=== PATIENT | male | born 1940 | race Asian ===

== ENCOUNTER 2023-09-07 14:32 | Inpatient (IN) | payer MEDICARE, OTHER ==
[~2023-09-07] VITALS: Ht 167.6 cm; Wt 68.0 kg
[2023-09-07 15:52] LABS: BASOPHILS % (AUTO) 0.4 % (0.0-2.0); EOSINOPHILS # (AUTO) 0.1 K/uL (0.0-0.7); EOSINOPHILS % (AUTO) 1.5 % (0.0-7.0); HEMATOCRIT 41.9 % (36.7-47.1); HEMOGLOBIN 13.9 g/dL (12.5-16.3); LYMPHOCYTES # (AUTO) 0.7 K/uL (0.8-4.8); LYMPHOCYTES % (AUTO) 9.6 % (20.5-51.5); MEAN CORPUSCULAR HEMOGLOBIN 30.1 uug (23.8-33.4); MEAN CORPUSCULAR HGB CONC 33 g/dL (32.5-36.3); MEAN CORPUSCULAR VOLUME 90.8 fL (73.0-96.2); MONOCYTES # (AUTO) 0.4 K/uL (0.1-1.30); MONOCYTES % (AUTO) 5.4 % (0.0-11.0); NEUTROPHILS # (AUTO) 5.7 K/uL (1.8-8.9); NEUTROPHILS % (AUTO) 83.1 % (38.5-71.5); PLATELET COUNT (AUTO) 185 K/uL (152-348); RED BLOOD CELL COUNT(AUTO) 4.62 MIL/uL (4.06-5.63); RED CELL DISTRIBUTION WIDTH 13.2 % (12.1-16.2); WHITE BLOOD COUNT (AUTO) 6.8 K/uL (3.6-10.2)
[2023-09-07 15:53] LABS: CARBON DIOXIDE 32 mmol/L (21-32); CHLORIDE 102 mmol/L (98-107); CREATININE 1.2 mg/dL (0.6-1.3); GLUCOSE 112 mg/dL (74-106); POTASSIUM 3.3 mmol/L (3.5-5.1); SODIUM SERUM 140 mmol/L (136-145); UREA NITROGEN, BLOOD 23 mg/dL (7-18)
[2023-09-07] MEDS ORDERED: ONDANSETRON 4 MG/2 ML VIAL IV PRN (16:15)
[2023-09-07] MEDS ORDERED: ACETAMINOPHEN 325 MG TABLET PO PRN (16:15)
[2023-09-07] MEDS ORDERED: HYDROCODONE/APAP 5-325MG TABLET PO PRN (16:15)
[2023-09-07] MEDS ORDERED: MAGNESIUM HYDROXIDE 30 ML LIQUID UDC PO PRN (16:15)
[2023-09-07] MEDS ORDERED: POTASSIUM CHLORIDE 20 MEQ TAB.PRT.SR PO ONE (16:15)
[2023-09-07] MEDS ORDERED: ENOXAPARIN SODIUM 40 MG/0.4 ML DISP.SYRIN SQ ONE (20:21)
[2023-09-07] MEDS ORDERED: POTASSIUM CHLORIDE 20 MEQ TAB.PRT.SR ONE (20:21)
[2023-09-07] MEDS: ENOXAPARIN SODIUM 40 MG/0.4 ML DISP.SYRIN SQ SCH (20:33)
[2023-09-07] MEDS: MORPHINE SULFATE 2 MG/1 ML DISP.SYRIN IV PRN (21:40)
[2023-09-07 21:44] VITALS: BP 162/97; TEMP 98.9; O2SAT 93
[2023-09-08 04:36] VITALS: BP 118/66; TEMP 98.6; O2SAT 94
[2023-09-08 07:12] LABS: BASOPHILS % (AUTO) 0.6 % (0.0-2.0); EOSINOPHILS # (AUTO) 0.3 K/uL (0.0-0.7); EOSINOPHILS % (AUTO) 3.8 % (0.0-7.0); HEMATOCRIT 43.9 % (36.7-47.1); LYMPHOCYTES # (AUTO) 0.7 K/uL (0.8-4.8); LYMPHOCYTES % (AUTO) 10.3 % (20.5-51.5); MEAN CORPUSCULAR HEMOGLOBIN 30.5 uug (23.8-33.4); MEAN CORPUSCULAR HGB CONC 34 g/dL (32.5-36.3); MEAN CORPUSCULAR VOLUME 89.2 fL (73.0-96.2); MONOCYTES # (AUTO) 0.5 K/uL (0.1-1.30); MONOCYTES % (AUTO) 7.4 % (0.0-11.0); NEUTROPHILS # (AUTO) 5.6 K/uL (1.8-8.9); NEUTROPHILS % (AUTO) 77.9 % (38.5-71.5); PLATELET COUNT (AUTO) 155 K/uL (152-348); RED BLOOD CELL COUNT(AUTO) 4.93 MIL/uL (4.06-5.63); RED CELL DISTRIBUTION WIDTH 13.3 % (12.1-16.2); WHITE BLOOD COUNT (AUTO) 7.2 K/uL (3.6-10.2)
[2023-09-08 07:21] LABS: DIFFERENTIAL COMMENT 1
[2023-09-08 07:24] LABS: CALCIUM 8.4 mg/dL (8.5-10.1); CREATININE 1.1 mg/dL (0.6-1.3); MAGNESIUM 2.1 mg/dL (1.8-2.4); PHOSPHOROUS 3.2 mg/dL (2.5-4.9); POTASSIUM 3.8 mmol/L (3.5-5.1)
[2023-09-08 11:13] VITALS: BP 139/74; TEMP 98.2; O2SAT 94
[2023-09-08 15:19] VITALS: BP 149/75; TEMP 98.4; O2SAT 94
[2023-09-08 19:30] VITALS: BP 154/80; TEMP 98.4; O2SAT 96
[2023-09-08] MEDS: MORPHINE SULFATE 2 MG/1 ML DISP.SYRIN IV PRN (19:50)
[2023-09-08] MEDS: ENOXAPARIN SODIUM 40 MG/0.4 ML DISP.SYRIN SQ SCH (21:00)
[2023-09-09 05:03] LABS: *BLOOD, URINE 3+ (NEGATIVE); *COLOR,URINE YELLOW (YELLOW); *KETONES,URINE 1+ (NEGATIVE); *PROTEIN,URINE 2+ (NEGATIVE); LEUKOCYTE ESTERASE ,URINE NEGATIVE (NEGATIVE); NITRITE, URINE NEGATIVE (NEGATIVE); PH,URINE 5.5 (5.0-8.0); UGLUCOSE NEGATIVE (NEGATIVE)
[2023-09-09 05:16] LABS: *BILIRUBIN,URIN 1+ (NEGATIVE)
[2023-09-09 05:17] LABS: *CLARITY,URINE SLIGHTLY CLOUDY (CLEAR)
[2023-09-09 05:33] LABS: BACTERIA,URINE FEW /HPF (NONE SEEN); RBC,URINE TNTC /HPF (0-3); SQUAMOUS EPITHELIAL CELL,UR NONE SEEN /HPF (NONE SEEN); WBC,URINE 0-3 /HPF (0-3)
[2023-09-09 06:00] VITALS: BP 138/79; TEMP 98.1; O2SAT 98
[2023-09-09] MEDS ORDERED: VANCOMYCIN 1000 MG VIAL ONE (06:43)
[2023-09-09] MEDS ORDERED: ONDANSETRON 4 MG/2 ML VIAL ONE (07:13)
[2023-09-09] MEDS ORDERED: DEXAMETHASONE SOD PHOSPHATE 4 MG INJ ONE (07:13)
[2023-09-09] MEDS ORDERED: LIDOCAINE-MPF 2% 5 ML VIAL ONE (07:13)
[2023-09-09] MEDS ORDERED: TRANEXAMIC ACID 1,000 MG/10 ML VIAL ONE (07:13)
[2023-09-09] MEDS ORDERED: CEFAZOLIN 1 G VIAL ONE ×2 (07:13)
[2023-09-09] MEDS ORDERED: PROPOFOL 200 MG/20 ML BOTTLE ONE (07:13)
[2023-09-09] MEDS ORDERED: PHENYLEPHRINE 10 MG/1 ML VIAL ONE (07:13)
[2023-09-09] MEDS ORDERED: FAMOTIDINE. 20 MG/2 ML VIAL IV ONE (07:14)
[2023-09-09] MEDS ORDERED: FENTANYL CITRATE 100 MCG/2 ML AMPUL ONE (07:14)
[2023-09-09] MEDS ORDERED: ROCURONIUM BROMIDE 50 MG/5 ML VIAL ONE (07:14)
[2023-09-09 10:35] VITALS: BP 121/64; TEMP 97.4; O2SAT 100
[2023-09-09 11:17] VITALS: BP 120/66; TEMP 97.4; O2SAT 100
[2023-09-09] MEDS: IV D5W-0.45% NS +20 KCL 1,000 ML IV PRN (12:21)
[2023-09-09 15:40] VITALS: BP 106/58; TEMP 98.4; O2SAT 100
[2023-09-09] MEDS: CEFAZOLIN 1 G in IV DEXTROSE 5% 50 ML IV SCH ×2 (16:04→23:54)
[2023-09-09 20:06] VITALS: BP 120/55; TEMP 98.5; O2SAT 98
[2023-09-10] MEDS ORDERED: IV D5W-0.45% NS +20 KCL 1,000 ML IV ONE ×2 (03:38→23:13)
[2023-09-10] MEDS: IV D5W-0.45% NS +20 KCL 1,000 ML IV PRN ×2 (03:43→23:37)
[2023-09-10 05:28] VITALS: BP 126/70; TEMP 98; O2SAT 99
[2023-09-10] MEDS: ENOXAPARIN SODIUM 40 MG/0.4 ML DISP.SYRIN SQ SCH (08:34)
[2023-09-10] MEDS: MORPHINE SULFATE 2 MG/1 ML DISP.SYRIN IV PRN (10:13)
[2023-09-10 11:34] VITALS: BP 129/63; TEMP 97.1; O2SAT 96
[2023-09-10 16:17] VITALS: BP 141/81; TEMP 98.7; O2SAT 96
[2023-09-10] MEDS: HYDROCODONE/APAP 5-325MG TABLET PO PRN ×2 (17:14→22:19)
[2023-09-10 21:00] VITALS: BP 128/70; TEMP 97.8; O2SAT 97
[2023-09-11 05:00] VITALS: BP 120/66; TEMP 98.2; O2SAT 96
[2023-09-11] MEDS: HYDROCODONE/APAP 5-325MG TABLET PO PRN ×4 (06:20→23:40)
[2023-09-11] MEDS: ENOXAPARIN SODIUM 40 MG/0.4 ML DISP.SYRIN SQ SCH (08:10)
[2023-09-11] MEDS: MORPHINE SULFATE 2 MG/1 ML DISP.SYRIN IV PRN ×2 (09:42→14:40)
[2023-09-11 11:19] VITALS: BP 122/72; TEMP 98; O2SAT 98
[2023-09-11] MEDS: IV D5W-0.45% NS +20 KCL 1,000 ML IV PRN (14:40)
[2023-09-11 16:09] VITALS: BP 137/77; TEMP 98.8; O2SAT 95
[2023-09-11 19:50] VITALS: BP 150/88; TEMP 98.9; O2SAT 94
[2023-09-12 04:00] VITALS: BP 138/66; TEMP 98.7; O2SAT 94
[2023-09-12] MEDS ORDERED: IV D5W-0.45% NS +20 KCL 1,000 ML IV ONE (04:59)
[2023-09-12] MEDS: HYDROCODONE/APAP 5-325MG TABLET PO PRN (08:46)
[2023-09-12] MEDS: ENOXAPARIN SODIUM 40 MG/0.4 ML DISP.SYRIN SQ SCH (08:48)
[2023-09-12 11:32] VITALS: BP 179/99; TEMP 98.7; O2SAT 94
[2023-09-12 12:41] VITALS: BP 135/77; O2SAT 95
[2023-09-12 15:41] VITALS: BP 121/69; TEMP 98.8; O2SAT 94
[2023-09-12] MEDS: ENSURE ENLIVE (VAN) 240 ML LIQUID PO SCH (17:40)
[2023-09-12 20:00] VITALS: BP 157/80; TEMP 98.6; O2SAT 94
[2023-09-13 04:00] VITALS: BP 121/53; TEMP 97.9; O2SAT 93
[2023-09-13 08:40] VITALS: BP 143/87; TEMP 98.3; O2SAT 99
[2023-09-13] MEDS: HYDROCODONE/APAP 5-325MG TABLET PO PRN (08:53)
[2023-09-13] MEDS: ENSURE ENLIVE (VAN) 240 ML LIQUID PO SCH ×2 (08:55→17:43)
[2023-09-13] MEDS: ENOXAPARIN SODIUM 40 MG/0.4 ML DISP.SYRIN SQ SCH (08:55)
[2023-09-13 10:58] LABS: CALCIUM 8.5 mg/dL (8.5-10.1); CARBON DIOXIDE 24 mmol/L (21-32); CHLORIDE 99 mmol/L (98-107); GLUCOSE 167 mg/dL (74-106); POTASSIUM 3.9 mmol/L (3.5-5.1); SODIUM SERUM 133 mmol/L (136-145); UREA NITROGEN, BLOOD 57 mg/dL (7-18)
[2023-09-13 11:03] LABS: BASOPHILS % (AUTO) 0.4 % (0.0-2.0); DIFFERENTIAL COMMENT 0; EOSINOPHILS # (AUTO) 0.2 K/uL (0.0-0.7); EOSINOPHILS % (AUTO) 1.5 % (0.0-7.0); HEMATOCRIT 41.5 % (36.7-47.1); HEMOGLOBIN 13.9 g/dL (12.5-16.3); LYMPHOCYTES # (AUTO) 0.5 K/uL (0.8-4.8); LYMPHOCYTES % (AUTO) 4.5 % (20.5-51.5); MEAN CORPUSCULAR HEMOGLOBIN 30.6 uug (23.8-33.4); MEAN CORPUSCULAR HGB CONC 34 g/dL (32.5-36.3); MEAN CORPUSCULAR VOLUME 91.3 fL (73.0-96.2); MONOCYTES # (AUTO) 0.7 K/uL (0.1-1.30); MONOCYTES % (AUTO) 6.3 % (0.0-11.0); NEUTROPHILS # (AUTO) 9.3 K/uL (1.8-8.9); NEUTROPHILS % (AUTO) 87.3 % (38.5-71.5); PLATELET COUNT (AUTO) 202 K/uL (152-348); RED BLOOD CELL COUNT(AUTO) 4.55 MIL/uL (4.06-5.63); RED CELL DISTRIBUTION WIDTH 13.3 % (12.1-16.2); WHITE BLOOD COUNT (AUTO) 10.6 K/uL (3.6-10.2)
[2023-09-13 12:00] VITALS: BP 129/48; TEMP 97.8; O2SAT 96
[2023-09-13] MEDS: IV NS 1000 ML 1,000 ML IV PRN (14:32)
[2023-09-13 16:00] VITALS: BP 164/100; TEMP 97.9; O2SAT 94
[2023-09-13] MEDS: CLONIDINE HCL 0.1 MG TABLET PO PRN (18:02)
[2023-09-13 21:17] VITALS: BP 128/58; TEMP 97.8; O2SAT 99
[2023-09-14] MEDS: IV NS 1000 ML 1,000 ML IV PRN (01:58)
[2023-09-14 05:39] VITALS: BP 156/90; TEMP 98.6; O2SAT 98
[2023-09-14 06:45] LABS: BASOPHILS % (AUTO) 0.3 % (0.0-2.0); DIFFERENTIAL COMMENT 0; EOSINOPHILS % (AUTO) 0.1 % (0.0-7.0); HEMATOCRIT 36.8 % (36.7-47.1); HEMOGLOBIN 12.5 g/dL (12.5-16.3); LYMPHOCYTES # (AUTO) 0.5 K/uL (0.8-4.8); LYMPHOCYTES % (AUTO) 6.8 % (20.5-51.5); MEAN CORPUSCULAR HEMOGLOBIN 30.5 uug (23.8-33.4); MEAN CORPUSCULAR HGB CONC 34 g/dL (32.5-36.3); MEAN CORPUSCULAR VOLUME 89.3 fL (73.0-96.2); MONOCYTES # (AUTO) 0.6 K/uL (0.1-1.30); MONOCYTES % (AUTO) 8.2 % (0.0-11.0); NEUTROPHILS # (AUTO) 6.7 K/uL (1.8-8.9); NEUTROPHILS % (AUTO) 84.6 % (38.5-71.5); PLATELET COUNT (AUTO) 174 K/uL (152-348); RED BLOOD CELL COUNT(AUTO) 4.12 MIL/uL (4.06-5.63); RED CELL DISTRIBUTION WIDTH 13.5 % (12.1-16.2); WHITE BLOOD COUNT (AUTO) 7.9 K/uL (3.6-10.2)
[2023-09-14 07:02] LABS: CALCIUM 8.5 mg/dL (8.5-10.1); CARBON DIOXIDE 24 mmol/L (21-32); CHLORIDE 104 mmol/L (98-107); CREATININE 1.6 mg/dL (0.6-1.3); GLUCOSE 125 mg/dL (74-106); POTASSIUM 3.9 mmol/L (3.5-5.1); SODIUM SERUM 137 mmol/L (136-145); UREA NITROGEN, BLOOD 58 mg/dL (7-18)
[2023-09-14] MEDS: ENSURE ENLIVE (VAN) 240 ML LIQUID PO SCH ×2 (08:00→17:35)
[2023-09-14] MEDS ORDERED: ENOXAPARIN SODIUM 30 MG/0.3 ML DISP.SYRIN SQ SCH (09:00)
[2023-09-14] MEDS ORDERED: REMEDY ESSENTIAL ZINC PASTE 113 GM TOP PRN (11:15)
[2023-09-14 11:30] VITALS: BP 177/92; TEMP 98.7; O2SAT 94
[2023-09-14] MEDS: CLONIDINE HCL 0.1 MG TABLET PO PRN ×2 (13:49→21:08)
[2023-09-14] MEDS: HYDROCODONE/APAP 5-325MG TABLET PO PRN ×2 (14:51→21:09)
[2023-09-14 16:08] VITALS: BP 129/31; TEMP 98.4; O2SAT 96
[2023-09-14] MEDS: REMEDY ESSENTIAL ZINC PASTE 113 GM TOP SCH ×2 (17:00→21:09)
[2023-09-14 21:05] VITALS: BP 174/86; TEMP 98.3; O2SAT 95
[2023-09-15 04:00] VITALS: BP 158/87; TEMP 97.9; O2SAT 97
[2023-09-15 07:15] LABS: BASOPHILS % (AUTO) 0.3 % (0.0-2.0); EOSINOPHILS % (AUTO) 0.1 % (0.0-7.0); HEMATOCRIT 36.3 % (36.7-47.1); HEMOGLOBIN 12.5 g/dL (12.5-16.3); LYMPHOCYTES # (AUTO) 0.5 K/uL (0.8-4.8); LYMPHOCYTES % (AUTO) 11.3 % (20.5-51.5); MEAN CORPUSCULAR HGB CONC 34 g/dL (32.5-36.3); MONOCYTES # (AUTO) 0.5 K/uL (0.1-1.30); MONOCYTES % (AUTO) 12.4 % (0.0-11.0); NEUTROPHILS # (AUTO) 3.1 K/uL (1.8-8.9); NEUTROPHILS % (AUTO) 75.9 % (38.5-71.5); PLATELET COUNT (AUTO) 193 K/uL (152-348); RED BLOOD CELL COUNT(AUTO) 4.04 MIL/uL (4.06-5.63); RED CELL DISTRIBUTION WIDTH 13.4 % (12.1-16.2); WHITE BLOOD COUNT (AUTO) 4.1 K/uL (3.6-10.2)
[2023-09-15 07:27] LABS: DIFFERENTIAL COMMENT 1
[2023-09-15 07:28] LABS: CALCIUM 8.5 mg/dL (8.5-10.1); CARBON DIOXIDE 26 mmol/L (21-32); CHLORIDE 103 mmol/L (98-107); CREATININE 1.5 mg/dL (0.6-1.3); GLUCOSE 116 mg/dL (74-106); POTASSIUM 3.7 mmol/L (3.5-5.1); SODIUM SERUM 138 mmol/L (136-145); UREA NITROGEN, BLOOD 48 mg/dL (7-18)
[2023-09-15] MEDS: ENSURE ENLIVE (VAN) 240 ML LIQUID PO SCH ×2 (08:00→17:50)
[2023-09-15] MEDS ORDERED: ENOXAPARIN SODIUM 40 MG/0.4 ML DISP.SYRIN SQ SCH (09:00)
[2023-09-15] MEDS: REMEDY ESSENTIAL ZINC PASTE 113 GM TOP SCH (09:00)
[2023-09-15 11:53] VITALS: BP 174/95; TEMP 99; O2SAT 97
[2023-09-15] MEDS: CLONIDINE HCL 0.1 MG TABLET PO PRN (14:12)
[2023-09-15] MEDS: HYDROCODONE/APAP 5-325MG TABLET PO PRN (15:45)
[2023-09-15 15:50] VITALS: BP 156/98; TEMP 98.2; O2SAT 96
[2023-09-15 20:05] VITALS: BP 164/88; TEMP 98.2; O2SAT 96
== END 2023-09-15 20:10 | DRG 521 ==
LOC: ER 14:32 → MEDSURG3 20:20
PROVIDERS: ADMIT Nurse Practitioner Acute Care; ATTEND Nurse Practitioner Acute Care
PROC: 0SRR0JA Replacement of Right Hip Joint, Femoral Surface with Synthetic Substitute, Uncemented, Open Approach (ICD-10-PCS; principal; 2023-09-09)
DX: S72.011A Unspecified intracapsular fracture of right femur, initial encounter for closed fracture (principal); G93.41 Metabolic encephalopathy; U07.1 COVID-19; N17.0 Acute kidney failure with tubular necrosis; W18.30XA Fall on same level, unspecified, initial encounter; E87.6 Hypokalemia; E83.51 Hypocalcemia; I10 Essential (primary) hypertension; Y93.9 Activity, unspecified; Z74.09 Other reduced mobility; Y92.510 Bank as the place of occurrence of the external cause; D72.829 Elevated white blood cell count, unspecified
CPT/HCPCS: 36415; 71045; 73501; 73502; 73700; 83735; 84100; 85025; 85730; 93005; 93307; A4649; A4663; A6213; G0378; J0690; J1100; J1650; J2270; J2405; J3010; J3370; J3490; J7040